=== PATIENT | male | born 1980 | race Caucasian/White ===

== ENCOUNTER 2018-06-24 15:54 | Emergency (ER) | payer OTHER ==
[~2018-06-24] VITALS: Ht 175.2 cm; Wt 68.0 kg
[~2018-06-24 15:54] MED LIST: Zofran4 MG SL
[2018-06-24] MEDS ORDERED: PREDNISOLO15 MG/5 M1 PO (16:58)
[2018-06-24] MEDS ORDERED: FLONASE ALLERG9.9 ML NAS (16:58)
[2018-06-24] MEDS ORDERED: ZITHROMAX200 MG/51 PO (16:58)
== END 2018-06-24 17:09 | disposition home or self-care (01) ==
LOC: ED 15:54
DX: J06.9 Acute upper respiratory infection, unspecified (principal); Z87.891 Personal history of nicotine dependence

== ENCOUNTER 2019-01-12 21:15 | Emergency (ER) | payer OTHER ==
[~2019-01-12] VITALS: Wt 72.6 kg
[~2019-01-12 21:15] MED LIST changes: +FLONASE ALLERG9.9 ML NAS; +PREDNISOLO15 MG/5 M1 PO; +ZITHROMAX200 MG/51 PO
[2019-01-12] MEDS ORDERED: PREVACID30 M2 PO (22:16)
[2019-01-12] MEDS ORDERED: ZOFRAN4 MG PO (22:23)
== END 2019-01-12 23:33 | disposition home or self-care (01) ==
LOC: ED 21:15
DX: K21.9 Gastro-esophageal reflux disease without esophagitis (principal); F17.200 Nicotine dependence, unspecified, uncomplicated